=== PATIENT | male | born 1990 | race Caucasian/White ===

== ENCOUNTER 2017-02-23 18:57 | Emergency (ER) | payer SELFPAY ==
[2017-02-23 19:35] VITALS: BP 128/55
[2017-02-23] MEDS ORDERED: Ketorolac 30 MG/ML SDV IM ONE (20:37)
--- NOTE | 2017-02-23 20:46 | EDM.PDOC ---
ED HPI GENERAL MEDICAL PROBLEM - General Chief Complaint: Back Pain or Injury Stated Complaint: BACK/SHOULDER PAIN, [id number] Time Seen by Provider: 02/23/17 20:35 Source of Information: Reports: Patient History Limitations: Reports: No Limitations - History of Present Illness INITIAL COMMENTS - FREE TEXT/NARRATIVE: This 26 yo male patient reports to the ED with upper back pain. The patient reports he was moving some concrete blocks yesterday and woke up with increased pain and stiffness in his upper back today. The patient reports he did go to work today, but was in constant pain throughout the day. The patient has not taken anything for temporary symptom relief. Onset: Today Duration: Constant Location: Reports: Back Quality: Reports: Ache, Dull Severity: Moderate Improves with: Reports: None Worsens with: Reports: None Associated Symptoms: Reports: No Other Symptoms Left Upper Back Pain Score (Numeric/FACES): 7 - Related Data Allergies Allergy/AdvReac Type Severity Reaction Status Date / Time No Known Allergies Allergy Verified 02/23/17 19:26 Home Meds: Home Meds . [No Known Home Meds] 09/03/15 [History] Past Medical History - Past Health History Medical/Surgical History: Denies Medical/Surgical History Genitourinary History: Reports: Renal Calculus Musculoskeletal History: Reports: Other (See Below) Other Musculoskeletal History: back pain Neurological History: Reports: Migraines - Infectious Disease History Infectious Disease History: Reports: Chicken Pox - Past Surgical History HEENT Surgical History: Reports: Myringotomy w Tube(s) Social & Family History - Tobacco Use Smoking Status *Q: Current Every Day Smoker Years of Tobacco use: 10 Packs/Tins Daily: 0.5 Used Tobacco, but Quit: No Second Hand Smoke Exposure: Yes - Caffeine Use Caffeine Use: Reports: Coffee, Energy Drinks, Soda - Alcohol Use Days Per Week of Alcohol Use: 0 Number of Drinks Per Day: 3 Total Drinks Per Week: 0 - Recreational Drug Use Recreational Drug Use: No - Living Situation & Occupation Living situation: Reports: with Family Occupation: Employed ED ROS GENERAL - Review of Systems Review Of Systems: ROS reveals no pertinent complaints other than HPI. ED EXAM, UPPER BACK/NECK PAIN - Physical Exam Exam: See Below Exam Limited By: No Limitations General Appearance: Alert, WD/WN, Moderate Distress Eye Exam: Bilateral Eye: EOMI, Normal Inspection, PERRL Ears Exam: Normal External Exam, Normal Canal, Hearing Grossly Normal, Normal TMs Nose Exam: Normal Inspection, Normal Mucousa, No Blood Throat/Mouth Exam: Normal Inspection, Normal Lips, Normal Teeth, Normal Gums, Normal Oropharynx, Normal Voice, No Airway Compromise Head Exam: Atraumatic, Normocephalic Neck Exam: Non-Tender, Full Range of Motion, Normal Alignment, Normal Inspection Nexus Criteria: No: Posterior, Midline Cervical Tenderness, Evidence of Intoxication, Altered Level of Consciousness, Focal Neurological Deficit, Painful Distraction Injuries Cardiovascular/Respiratory: Regular Rate, Rhythm, No M/R/G, Normal Peripheral Pulses, No JVD, Normal Breath Sounds, No Respiratory Distress GI/Abdominal: Normal Bowel Sounds, Soft, Non-Tender, No Organomegaly, No Distention, No Abnormal Bruit, No Mass (Male) Exam: Deferred Rectal (Males) Exam: Deferred Back Exam: Normal Inspection, Decreased Range of Motion, Paraspinal Tenderness ( left upper back) Extremities: Normal Inspection, Normal Range of Motion, Non-Tender, No Pedal Edema, Normal Capillary Refill 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, No Motor/Sensory Deficits, Alert, Normal Mood/Affect, Oriented x 3 Psychiatric: Normal Affect, Normal Mood Skin Exam: Normal Color, Warm/Dry Lymphatic: No Adenopathy Course - Vital Signs Last Recorded V/S: Last Vital Signs Temp 37.3 C 02/23/17 19:26 Pulse 72 02/23/17 19:26 Resp 16 02/23/17 19:26 BP 128/55 L 02/23/17 19:26 Pulse Ox 99 02/23/17 19:26 - Orders/Labs/Meds Orders: Active Orders 24 hr Category Date Time Status Ketorolac [Toradol] Med 02/23/17 20:37 Once 60 mg IM ONETIME ONE Orphenadrine [Norflex] Med 02/23/17 20:45 Ordered 60 mg IM Q12H Medication Orders Ketorolac Tromethamine (Toradol) 60 mg IM ONETIME ONE Stop: 02/23/17 20:38 Orphenadrine Citrate (Norflex) 60 mg IM Q12H [facility] Meds: Medications Generic Name Dose Route Start Last Admin Trade Name Freq PRN Reason Stop Dose Admin Ketorolac Tromethamine 60 mg 02/23/17 20:37 Toradol IM 02/23/17 20:38 ONETIME ONE Orphenadrine Citrate 60 mg 02/23/17 20:45 Norflex IM Q12H [facility] Departure - Departure Time of Disposition: 20:43 Disposition: Home, Self-Care 01 Condition: fair Clinical Impression: Upper back strain Qualifiers: Encounter type: initial encounter Qualified Code(s): S29.012A - Strain of muscle and tendon of back wall of thorax, initial encounter - Discharge Information Instructions: Back Pain, Adult, [id number], Muscle Strain, [id number], Back Injury Prevention, [id number] Forms: ED Department Discharge Care Plan Goals: The patient was advised of the examination results during the visit. The patient was given injections of Norflex (muscle relaxer) and Toradol (anti- inflammatory) during the visit. The patient was discharged with a script for Toradol (10 mg) #20 to take 1 by mouth every 6 hours and Flexeril (10 mg) #10 to take 1 by mouth at bedtime as needed. If the patient has any additional symptoms or concerns, the patient should follow-up with his primary care provider or return to the emergency department. - My Orders Last 24 Hours: My Active Orders 02/23/17 20:37 Ketorolac [Toradol] 60 mg IM ONETIME ONE 02/23/17 20:45 Orphenadrine [Norflex] 60 mg IM Q12H - Assessment/Plan Last 24 Hours: My Active Orders 02/23/17 20:37 Ketorolac [Toradol] 60 mg IM ONETIME ONE 02/23/17 20:45 Orphenadrine [Norflex] 60 mg IM Q12H
== END 2017-02-23 21:03 | disposition home or self-care (01) ==
LOC: DL.ED 18:57
DX: S29.012A Strain of muscle and tendon of back wall of thorax, initial encounter (principal); F17.210 Nicotine dependence, cigarettes, uncomplicated; G43.909 Migraine, unspecified, not intractable, without status migrainosus; Z96.22 Myringotomy tube(s) status; X50.9XXA Other and unspecified overexertion or strenuous movements or postures, initial encounter; Y93.89 Activity, other specified
CPT/HCPCS: 96372; 99283; J1885; J2360

== ENCOUNTER 2018-05-22 16:07 | Emergency (ER) | payer SELFPAY ==
[2018-05-22 16:15] VITALS: BP 148/69
[2018-05-22] MEDS ORDERED: Penicillin G Benzathine/Procaine 600-600 1.2 Millunits/2 ML Syringe IM ONE (16:35)
--- NOTE | 2018-05-22 16:37 | EDM.PDOC ---
Scribed by Elisabeth Hahn 05/22/18 [id number] for Yevgeniy Beard MD ED HPI GENERAL MEDICAL PROBLEM - General Chief Complaint: ENT Problem Stated Complaint: COLD [id number] Time Seen by Provider: 05/22/18 16:19 Source of Information: Reports: Patient, RN, RN Notes Reviewed History Limitations: Reports: No Limitations - History of Present Illness INITIAL COMMENTS - FREE TEXT/NARRATIVE: Patient presents to ER with complaint of sore throat, mild dry cough x3 days. He has subjective fevers, but did not measure his temperature. Decreased appetite. Denies abdominal pain, nausea, vomiting or rash. Onset Date: 05/20/18 Duration: Getting Worse Location: Reports: Generalized Quality: Reports: Ache Severity: Mild Improves with: Reports: None Worsens with: Reports: None Associated Symptoms: Reports: No Other Symptoms Throat Pain Score (Numeric/FACES): 6 - Related Data Allergies Allergy/AdvReac Type Severity Reaction Status Date / Time No Known Allergies Allergy Verified 05/22/18 16:13 Home Meds: Home Meds . [No Known Home Meds] 09/03/15 [History] Past Medical History - Past Health History Medical/Surgical History: Denies Medical/Surgical History Cardiovascular History: Reports: None Respiratory History: Reports: None Gastrointestinal History: Reports: None Genitourinary History: Reports: Renal Calculus Musculoskeletal History: Reports: Other (See Below) Other Musculoskeletal History: back pain Neurological History: Reports: Migraines Psychiatric History: Reports: None Endocrine/Metabolic History: Reports: None Hematologic History: Reports: None Immunologic History: Reports: None Oncologic (Cancer) History: Reports: None Dermatologic History: Reports: None - Infectious Disease History Infectious Disease History: Reports: Chicken Pox - Past Surgical History HEENT Surgical History: Reports: Myringotomy w Tube(s) Social & Family History - Family History Family Medical History: Noncontributory - Tobacco Use Smoking Status *Q: Current Every Day Smoker Years of Tobacco use: 10 Packs/Tins Daily: 1 - Caffeine Use Caffeine Use: Reports: None - Recreational Drug Use Recreational Drug Use: No - Living Situation & Occupation Living situation: Reports: with Family Occupation: Employed ED ROS ENT - Review of Systems Review Of Systems: ROS reveals no pertinent complaints other than HPI. ED EXAM, ENT - Physical Exam Exam: See Below Exam Limited By: No Limitations General Appearance: Alert, WD/WN, No Apparent Distress Eye Exam: Bilateral Eye: EOMI, Normal Inspection, PERRL Ears: Normal External Exam, Normal Canal, Hearing Grossly Normal, Normal TMs Nose: Other (mildly congested) Mouth/Throat: Normal Gums, Normal Lips, Normal Teeth, Pharyngeal Erythema. No: Tonsillar Exudates Head: Atraumatic, Normocephalic Neck: Other (shoddy cervical lymphadenopthy. No nuchal rigidity.) Respiratory/Chest: No Respiratory Distress, Lungs Clear, Normal Breath Sounds, No Accessory Muscle Use, Chest Non-Tender Cardiovascular: Regular Rate, Rhythm GI/Abdominal: Normal Bowel Sounds, Soft, Non-Tender, No Organomegaly, No Distention, No Abnormal Bruit, No Mass (Male) Exam: Deferred Rectal (Males) Exam: Deferred Extremities: Normal Inspection, Normal Range of Motion, Non-Tender, No Pedal Edema, Normal Capillary Refill Neurological: Alert, No Motor/Sensory Deficits Skin: Warm, Dry, Intact, Normal Color, No Rash Course - Vital Signs Last Recorded V/S: Last Vital Signs Temp 36.1 C 05/22/18 16:14 Pulse 80 05/22/18 16:14 Resp 16 05/22/18 16:14 BP 148/69 H 05/22/18 16:14 Pulse Ox 100 05/22/18 16:14 - Orders/Labs/Meds Orders: Active Orders 24 hr Category Date Time Status Pen G Yoandy/Pen G Procaine [Bicillin C-R 600/600] Med 05/22/18 16:35 Once 1.2 millunits IM ONETIME ONE Labs: Rapid strep: Positive. Departure - Departure Time of Disposition: 16:36 Disposition: Home, Self-Care 01 Condition: Good Clinical Impression: Pharyngitis Qualifiers: Pharyngitis/tonsillitis etiology: streptococcus Qualified Code(s): J02.0 - Streptococcal pharyngitis - Discharge Information Instructions: Strep Throat, [id number] Forms: ED Department Discharge Additional Instructions: Rx: Z-Meño 250mg Frequent saltwater gargles until improved. Follow up in clinic if not improving in 3 days. - My Orders Last 24 Hours: My Active Orders 05/22/18 16:35 Pen G Yoandy/Pen G Procaine [Bicillin C-R 600/600] 1.2 millunits IM ONETIME ONE - Assessment/Plan Last 24 Hours: My Active Orders 05/22/18 16:35 Pen G Yoandy/Pen G Procaine [Bicillin C-R 600/600] 1.2 millunits IM ONETIME ONE I have read and agree with the documentation that has been completed regarding this visit. By signing this record, I attest that the documentation was completed in my physical presence and is an accurate record of the encounter.
== END 2018-05-22 16:49 | disposition home or self-care (01) ==
LOC: DL.ED 16:07
DX: J02.0 Streptococcal pharyngitis (principal); F17.210 Nicotine dependence, cigarettes, uncomplicated
CPT/HCPCS: 87430; 96372; 99282; J0558

== ENCOUNTER 2019-01-11 09:31 | Emergency (ER) | payer OTHER ==
[2019-01-11 09:39] VITALS: BP 109/65
[2019-01-11] MEDS: Aspirin 81 MG Tab.Chew PO ONE (10:05)
--- NOTE | 2019-01-11 10:09 | EDM.PDOC ---
ED HPI GENERAL MEDICAL PROBLEM - General Chief Complaint: Chest Pain Stated Complaint: EKG [id number] Time Seen by Provider: 01/11/19 09:55 Source of Information: Reports: Patient History Limitations: Reports: No Limitations - History of Present Illness INITIAL COMMENTS - FREE TEXT/NARRATIVE: This 28 yo male patient was sent to the ED from the [facility] due to left sided chest pain and increased shortness of breath on exertion. The patient reports his pain started last night at about 2030 and has continued since that time. The patient reports he was driving home when he noticed the chest pain start. The patient reports increased shortness of breath with exertion. The patient reports he took, ibuprofen and a muscle relaxer last night, but did not have any symptom relief. The patient also reports he had a headache during the night and almost came to the ED at 0300 this morning due to the headache. The patient reports he has a history of left rotator cuff injury with some similar pain, but he has not had pain into his chest in the past. The patient reports he is a smoker, but did not smoke much last night. The patient is able to touch the areas of increased pain from the left sternal border to the left mid chest. Onset Date: 01/10/19 Onset Time: 20:30 Duration: Hour(s):, Constant Location: Reports: Chest (left sided chest pain) Quality: Reports: Ache, Sharp, Stabbing Severity: Severe Improves with: Reports: None Worsens with: Reports: None Context: Reports: Other Associated Symptoms: Reports: Chest Pain, Shortness of Breath Treatments TREASURY AGENT: Reports: NSAIDS, Other Medication(s) (muscle relaxer) Mid-Sternal Chest Pain Score (Numeric/FACES): 7 - Related Data Allergies Allergy/AdvReac Type Severity Reaction Status Date / Time No Known Allergies Allergy Verified 01/11/19 09:39 Home Meds: Home Meds . [No Known Home Meds] 09/03/15 [History] Past Medical History - Past Health History Medical/Surgical History: Denies Medical/Surgical History Cardiovascular History: Reports: None Respiratory History: Reports: None Gastrointestinal History: Reports: None Genitourinary History: Reports: Renal Calculus Musculoskeletal History: Reports: Other (See Below) Other Musculoskeletal History: back pain Neurological History: Reports: Migraines Psychiatric History: Reports: None Endocrine/Metabolic History: Reports: None Hematologic History: Reports: None Immunologic History: Reports: None Oncologic (Cancer) History: Reports: None Dermatologic History: Reports: None - Infectious Disease History Infectious Disease History: Reports: Chicken Pox - Past Surgical History HEENT Surgical History: Reports: Myringotomy w Tube(s) Social & Family History - Family History Family Medical History: Noncontributory - Tobacco Use Smoking Status *Q: Current Every Day Smoker Years of Tobacco use: 6 Packs/Tins Daily: 0.4 Second Hand Smoke Exposure: Yes - Caffeine Use Caffeine Use: Reports: None - Recreational Drug Use Recreational Drug Use: No - Living Situation & Occupation Living situation: Reports: with Family Occupation: Employed ED ROS GENERAL - Review of Systems Review Of Systems: ROS reveals no pertinent complaints other than HPI. ED EXAM, GENERAL - Physical Exam Exam: See Below Exam Limited By: No Limitations General Appearance: Alert, WD/WN, Moderate Distress Eye Exam: Bilateral Eye: EOMI, Normal Inspection, PERRL Ears: Normal External Exam, Normal Canal, Hearing Grossly Normal, Normal TMs Nose: Normal Inspection, Normal Mucosa, No Blood Throat/Mouth: Normal Inspection, Normal Lips, Normal Teeth, Normal Gums, Normal Oropharynx, Normal Voice, No Airway Compromise Head: Atraumatic, Normocephalic Neck: Normal Inspection, Supple, Non-Tender, Full Range of Motion Respiratory/Chest: No Respiratory Distress, Lungs Clear, Normal Breath Sounds, No Accessory Muscle Use, Other (left sided chest wall tenderness) Cardiovascular: Normal Peripheral Pulses, Regular Rate, Rhythm, No Edema, No Gallop, No JVD, No Murmur, No Rub GI/Abdominal: Normal Bowel Sounds, Soft, Non-Tender, No Organomegaly, No Distention, No Abnormal Bruit, No Mass (Male) Exam: Deferred Rectal (Males) Exam: Deferred Back Exam: Normal Inspection, Full Range of Motion, NT Extremities: Normal Inspection, Normal Range of Motion, Non-Tender, Normal Capillary Refill, No Pedal Edema Neurological: Alert, Oriented, CN II-XII Intact, Normal Cognition, Normal Gait, Normal Reflexes, No Motor/Sensory Deficits Psychiatric: Normal Affect, Normal Mood Skin Exam: Warm, Dry, Intact, Normal Color, No Rash Lymphatic: No Adenopathy Course - Vital Signs Last Recorded V/S: Last Vital Signs Temp 36.0 C 01/11/19 09:34 Pulse 80 01/11/19 09:34 Resp 18 01/11/19 09:34 BP 109/65 01/11/19 09:34 Pulse Ox 99 01/11/19 09:34 - Orders/Labs/Meds Orders: Active Orders 24 hr Category Date Time Status EKG Documentation Completion [RC] URGENT Care 01/11/19 09:34 Ordered Labs: Laboratory Tests 01/11/19 01/11/19 01/11/19 Range/Units 09:42 09:42 09:42 WBC 16.6 H (5.0-10.0) 10^3/uL RBC 5.44 (4.6-6.2) 10^6/uL Hgb 15.7 (14.0-18.0) g/dL Hct 44.6 (40.0-54.0) % MCV 82.0 D (80-100) fL MCH 28.9 (27.0-34.0) pg MCHC 35.2 H (33.0-35.0) g/dL Plt Count 232 (150-450) 10^3/uL Neut % (Auto) 73.7 (42.2-75.2) % Lymph % (Auto) 11.0 L (20.5-50.1) % [place] % (Auto) 14.1 H (2-8) % Eos % (Auto) 1.0 (1.0-3.0) % Baso % (Auto) 0.2 (0.0-1.0) % D-Dimer, Quantitative < 100 (0-400) ng/mL Sodium 135 (135-145) mmol/L Potassium 3.6 (3.6-5.0) mmol/L Chloride 100 L (101-111) mmol/L Carbon Dioxide 24.0 (21.0-31.0) mmol/L Anion Gap 14.6 BUN 14 (7-18) mg/dL Creatinine 0.8 (0.6-1.3) mg/dL Est Cr Clr Drug Dosing 145.10 mL/min Estimated GFR (MDRD) > 60 BUN/Creatinine Ratio 17.50 Glucose 125 H (74-105) mg/dL Calcium 9.1 (8.4-10.2) mg/dl Total Bilirubin 1.3 H (0.2-1.0) mg/dL AST 22 (10-42) IU/L ALT 13 (10-60) IU/L Alkaline Phosphatase 61 (42-121) IU/L Troponin I < 0.02 (0.00-0.02) ng/ml Total Protein 7.4 (6.7-8.2) g/dl Albumin 4.2 (3.2-5.5) g/dl Globulin 3.2 Albumin/Globulin Ratio 1.31 Urine Color (YELLOW) Urine Appearance (CLEAR) Urine pH (5.0-9.0) Ur Specific [place] (1.005-1.030) Urine Protein (NEGATIVE) Urine Glucose (UA) (NEGATIVE) Urine Ketones (NEGATIVE) Urine Occult Blood (NEGATIVE) Urine Nitrite (NEGATIVE) Urine Bilirubin (NEGATIVE) Urine Urobilinogen (0.2-1.0) mg/dL Ur Leukocyte Esterase (NEGATIVE) Urine RBC /HPF Urine WBC (0-5/HPF) /HPF Ur Epithelial Cells /HPF Urine Bacteria (0-FEW/HPF) /HPF Urine Mucus /LPF Urine Opiates Screen (NEGATIVE) Ur Oxycodone Screen (NEGATIVE) Urine Methadone Screen (NEGATIVE) Ur Barbiturates Screen (NEGATIVE) U Tricyclic Antidepress (NEGATIVE) Ur Phencyclidine Scrn (NEGATIVE) Ur Amphetamine Screen (NEGATIVE) U Methamphetamines Scrn (NEGATIVE) Urine MDMA Screen (NEGATIVE) U Benzodiazepines Scrn (NEGATIVE) Urine Cocaine Screen (NEGATIVE) U Marijuana (THC) Screen (NEGATIVE) 01/11/19 01/11/19 Range/Units 09:58 09:58 WBC (5.0-10.0) 10^3/uL RBC (4.6-6.2) 10^6/uL Hgb (14.0-18.0) g/dL Hct (40.0-54.0) % MCV (80-100) fL MCH (27.0-34.0) pg MCHC (33.0-35.0) g/dL Plt Count (150-450) 10^3/uL Neut % (Auto) (42.2-75.2) % Lymph % (Auto) (20.5-50.1) % [place] % (Auto) (2-8) % Eos % (Auto) (1.0-3.0) % Baso % (Auto) (0.0-1.0) % D-Dimer, Quantitative (0-400) ng/mL Sodium (135-145) mmol/L Potassium (3.6-5.0) mmol/L Chloride (101-111) mmol/L Carbon Dioxide (21.0-31.0) mmol/L Anion Gap BUN (7-18) mg/dL Creatinine (0.6-1.3) mg/dL Est Cr Clr Drug Dosing mL/min Estimated GFR (MDRD) BUN/Creatinine Ratio Glucose (74-105) mg/dL Calcium (8.4-10.2) mg/dl Total Bilirubin (0.2-1.0) mg/dL AST (10-42) IU/L ALT (10-60) IU/L Alkaline Phosphatase (42-121) IU/L Troponin I (0.00-0.02) ng/ml Total Protein (6.7-8.2) g/dl Albumin (3.2-5.5) g/dl Globulin Albumin/Globulin Ratio Urine Color Yellow (YELLOW) Urine Appearance Clear (CLEAR) Urine pH 6.5 (5.0-9.0) Ur Specific [place] 1.020 (1.005-1.030) Urine Protein 30 H (NEGATIVE) Urine Glucose (UA) Negative (NEGATIVE) Urine Ketones Negative (NEGATIVE) Urine Occult Blood Negative (NEGATIVE) Urine Nitrite Negative (NEGATIVE) Urine Bilirubin Negative (NEGATIVE) Urine Urobilinogen 0.2 (0.2-1.0) mg/dL Ur Leukocyte Esterase Negative (NEGATIVE) Urine RBC Not seen /HPF Urine WBC 0-5 (0-5/HPF) /HPF Ur Epithelial Cells Few /HPF Urine Bacteria Few (0-FEW/HPF) /HPF Urine Mucus Many H /LPF Urine Opiates Screen Negative (NEGATIVE) Ur Oxycodone Screen Negative (NEGATIVE) Urine Methadone Screen Negative (NEGATIVE) Ur Barbiturates Screen Negative (NEGATIVE) U Tricyclic Antidepress Negative (NEGATIVE) Ur Phencyclidine Scrn Negative (NEGATIVE) Ur Amphetamine Screen Positive H (NEGATIVE) U Methamphetamines Scrn Positive H (NEGATIVE) Urine MDMA Screen Negative (NEGATIVE) U Benzodiazepines Scrn Negative (NEGATIVE) Urine Cocaine Screen Negative (NEGATIVE) U Marijuana (THC) Screen Positive H (NEGATIVE) Meds: Medications Discontinued Medications Generic Name Dose Route Start Last Admin Trade Name Freq PRN Reason Stop Dose Admin Aspirin 324 mg 01/11/19 10:02 04/24/19 10:05 Aspirin PO 01/11/19 10:03 324 mg ONETIME ONE Administration - Re-Assessments/Exams Free Text/Narrative Re-Assessment/Exam: 01/11/19 10:37 The patient was advised of the lab results. The patient admits to smoking marijuana and also taking some Ritalin in the past couple of days. Departure - Departure Time of Disposition: 10:35 Disposition: Home, Self-Care 01 Condition: Fair Clinical Impression: Nonspecific chest pain, Chest wall pain Instructions: Nonspecific Chest Pain, [id number], Chest Wall Pain, Easy-to- Read Forms: ED Department Discharge Care Plan Goals: The patient was advised of the examination, lab, x-ray and EKG results during the visit. The patient was encouraged to rest and relax. The patient may take Tylenol or ibuprofen as directed for temporary symptom relief. The patient should avoid taking medications that are not prescribed to him. If the patient has any additional symptoms or concerns, the patient should either return to the emergency department or visit his primary care facility. - My Orders Last 24 Hours: My Active Orders 01/11/19 09:34 EKG Documentation Completion [RC] URGENT - Assessment/Plan Last 24 Hours: My Active Orders 01/11/19 09:34 EKG Documentation Completion [RC] URGENT
[2019-01-11 10:10] LABS: ANION GAP 14.6; CHLORIDE,CL 100 mmol/L (101-111); SODIUM,NA 135 mmol/L (135-145)
--- NOTE | 2019-01-11 10:10 | CR ---
Clinical history: 28-year-old male chest pain and shortness of breath. Interpretation: *No acute new cardiopulmonary abnormality identified in the interval since 09 August 2014 (comparison exam). Normal cardiac silhouette and bony thorax. Left-sided aortic arch. No cephalization of flow, signs of alveolar edema or dependent pleural effusion. No new lung mass, hilar lymphadenopathy or focal lobar pneumonia. No atelectasis/collapse. No pneumothorax.
== END 2019-01-11 10:41 | disposition home or self-care (01) ==
LOC: DL.ED 09:31
DX: R07.89 Other chest pain (principal); F17.210 Nicotine dependence, cigarettes, uncomplicated
CPT/HCPCS: 36415; 71046; 80053; 80305; 81001; 84484; 85025; 85379; 93005; 99285; A9270

== ENCOUNTER 2019-09-03 09:23 | Emergency (ER) | payer MEDICAID ==
[2019-09-03 09:27] VITALS: BP 117/74; PULSE 60
[2019-09-03 10:22] LABS: ANION GAP 10.2; CHLORIDE,CL 104 mmol/L (101-111); SODIUM,NA 136 mmol/L (135-145)
[2019-09-03 10:26] LABS: ACETAMINOPHEN < 10 ug/mL
[2019-09-03] MEDS ORDERED: Sodium Chloride 0.9% 1,000 ML IV ONE (11:14)
--- NOTE | 2019-09-03 12:25 | EDM.PDOCBH ---
Scribed by Elisabeth Hahn 09/03/19 1129 for Susy Tovar NP ED HPI GENERAL MEDICAL PROBLEM - General Chief Complaint: Behavioral/Psych Stated Complaint: SUICIDAL THOUGHTS Time Seen by Provider: 09/03/19 09:47 Source of Information: Reports: Patient, RN, RN Notes Reviewed History Limitations: Reports: No Limitations - History of Present Illness INITIAL COMMENTS - FREE TEXT/NARRATIVE: Patient presents to ER stating that he overdosed on Wellbutrin 10 tablets 2 hours ago. He states that he vomited up all the tablets immediately. He felt remorseful, after looking at pictures of his children and feels he cannot entertain the idea of being suicidal and has to be there for his kids. Patient has had suicidal thoughts for approximately 1 month. He was started on Wellbutrin 3 months and feels that the Wellbutrin. He starts a new job at 0800 tomorrow morning and does not want to be admitted. He just wanted to be checked out. Presently feeling calm. He is not anxious. He had some muscle tightness in his right scapular and neck region. History of benign positional vertigo and migraines, otherwise healthy. "He has never been in this condition before and feels embarrassed". Patient states he punched a wall with his left hand this am as well. He has an abrasion on the 4th and 5th web that is mild with minimal pain. Onset: Today Severity: Moderate Improves with: Reports: None Worsens with: Reports: None Associated Symptoms: Reports: No Other Symptoms Generalized Pain Score (Numeric/FACES): 5 - Related Data Allergies Allergy/AdvReac Type Severity Reaction Status Date / Time No Known Allergies Allergy Verified 09/03/19 09:28 Home Meds: Home Meds buPROPion HCl [Wellbutrin Xl] 150 mg PO DAILY 09/03/19 [History] Past Medical History - Past Health History Medical/Surgical History: Denies Medical/Surgical History Cardiovascular History: Reports: None Respiratory History: Reports: None Gastrointestinal History: Reports: None Genitourinary History: Reports: Renal Calculus Musculoskeletal History: Reports: Other (See Below) Other Musculoskeletal History: back pain Neurological History: Reports: Migraines, Vertigo (benign positional) Psychiatric History: Reports: Anxiety, Depression, Suicide Attempt Endocrine/Metabolic History: Reports: None Hematologic History: Reports: None Immunologic History: Reports: None Oncologic (Cancer) History: Reports: None Dermatologic History: Reports: None - Infectious Disease History Infectious Disease History: Reports: Chicken Pox - Past Surgical History HEENT Surgical History: Reports: Myringotomy w Tube(s) Social & Family History - Family History Family Medical History: Noncontributory - Tobacco Use Smoking Status *Q: Current Every Day Smoker Years of Tobacco use: 15 Packs/Tins Daily: 0.5 - Caffeine Use Caffeine Use: Reports: None - Recreational Drug Use Recreational Drug Use: No - Living Situation & Occupation Living situation: Reports: with Family Occupation: Employed ED ROS GENERAL - Review of Systems Review Of Systems: Comprehensive ROS is negative, except as noted in HPI. ED EXAM, BEHAVIORAL HEALTH - Physical Exam Exam: See Below Exam Limited By: No Limitations General Appearance: Alert, WD/WN, No Apparent Distress Eye Exam: Bilateral Eye: EOMI, Normal Inspection, PERRL Ears: Normal External Exam, Normal Canal, Hearing Grossly Normal, Normal TMs Nose: Normal Inspection, Normal Mucosa, No Blood Throat/Mouth: Normal Inspection, Normal Lips, Normal Teeth, Normal Gums, Normal Oropharynx, Normal Voice, No Airway Compromise Head: Atraumatic, Normocephalic Neck: Normal Inspection, Supple, Non-Tender, Full Range of Motion Respiratory/Chest: No Respiratory Distress, Lungs Clear, Normal Breath Sounds, No Accessory Muscle Use, Chest Non-Tender Cardiovascular: Normal Peripheral Pulses, Regular Rate, Rhythm, No Edema, No Gallop, No JVD, No Murmur, No Rub GI/Abdominal: Normal Bowel Sounds, Soft, Non-Tender, No Organomegaly, No Distention, No Abnormal Bruit, No Mass (Male) Exam: Deferred Rectal (Males) Exam: Deferred Back Exam: Normal Inspection, Full Range of Motion, NT Extremities: Normal Inspection, Normal Range of Motion, Non-Tender, Normal Capillary Refill, No Pedal Edema Neurological: Alert, Normal Mood/Affect, CN II-XII Intact, Normal Cognition, Normal Gait, Normal Reflexes, No Motor/Sensory Deficits, Oriented x 3 Psychiatric: Other (history depression. "Denies present thoughts of suicide") Skin Exam: Other (abrasion left hand 3-4 webs otherwise normal. ) EKG INTERPRETATION EKG Date: 09/03/19 Time: 09:55 Rhythm: Other (sinus rhythm) Rate (Beats/Min): 67 EKG Interpretation Comments: QT interval is 372. COURSE, BEHAVIORAL HEALTH COMP - Course Vital Signs: Last Vital Signs Temp 36.4 C 09/03/19 09:26 Pulse 60 09/03/19 09:26 Resp 18 09/03/19 09:26 BP 117/74 09/03/19 09:26 Pulse Ox 100 09/03/19 09:26 Orders, Labs, Meds: Active Orders 24 hr Category Date Time Status EKG 12 Lead [EKG Documentation Completion] [RC] STAT Care 09/03/19 09:49 Active Sodium Chloride 0.9% [Normal Saline] 1,000 ml Med 09/03/19 11:14 Active IV .BOLUS Medication Orders Sodium Chloride (Normal Saline) 1,000 mls @ 999 mls/hr IV .BOLUS ONE Stop: 09/03/19 12:14 Last Admin: 09/03/19 11:19 Dose: 999 mls/hr Laboratory Tests 09/03/19 09/03/19 09/03/19 Range/Units 09:55 09:55 11:58 WBC 10.0 (5.0-10.0) 10^3/uL RBC 5.49 (4.6-6.2) 10^6/uL Hgb 15.8 (14.0-18.0) g/dL Hct 45.6 (40.0-54.0) % MCV 83.1 (80-100) fL MCH 28.8 (27.0-34.0) pg MCHC 34.6 (33.0-35.0) g/dL Plt Count 251 (150-450) 10^3/uL Neut % (Auto) 57.9 (42.2-75.2) % Lymph % (Auto) 26.7 (20.5-50.1) % Wallace % (Auto) 13.0 H (2-8) % Eos % (Auto) 2.0 (1.0-3.0) % Baso % (Auto) 0.4 (0.0-1.0) % Sodium 136 (135-145) mmol/L Potassium 4.2 (3.6-5.0) mmol/L Chloride 104 (101-111) mmol/L Carbon Dioxide 26.0 (21.0-31.0) mmol/L Anion Gap 10.2 BUN 12 (7-18) mg/dL Creatinine 0.9 (0.6-1.3) mg/dL Est Cr Clr Drug Dosing 126.49 mL/min Estimated GFR (MDRD) > 60 BUN/Creatinine Ratio 13.33 Glucose 93 (74-105) mg/dL Calcium 9.0 (8.4-10.2) mg/dl Total Bilirubin 0.6 (0.2-1.0) mg/dL AST 18 (10-42) IU/L ALT 13 (10-60) IU/L Alkaline Phosphatase 63 (42-121) IU/L Total Protein 7.2 (6.7-8.2) g/dl Albumin 4.2 (3.2-5.5) g/dl Globulin 3.0 Albumin/Globulin Ratio 1.40 Salicylates < 4 mg/dL Urine Opiates Screen Negative (NEGATIVE) Ur Oxycodone Screen Negative (NEGATIVE) Urine Methadone Screen Negative (NEGATIVE) Acetaminophen < 10 ug/mL Ur Barbiturates Screen Negative (NEGATIVE) U Tricyclic Antidepress Negative (NEGATIVE) Ur Phencyclidine Scrn Negative (NEGATIVE) Ur Amphetamine Screen Positive H (NEGATIVE) U Methamphetamines Scrn Positive H (NEGATIVE) Urine MDMA Screen Negative (NEGATIVE) U Benzodiazepines Scrn Negative (NEGATIVE) Urine Cocaine Screen Negative (NEGATIVE) U Marijuana (THC) Screen Negative (NEGATIVE) Medications Generic Name Dose Route Start Last Admin Trade Name Freq PRN Reason Stop Dose Admin Sodium Chloride 1,000 mls @ 999 mls/hr 09/03/19 11:14 09/03/19 11:19 Normal Saline IV 09/03/19 12:14 999 mls/hr .BOLUS ONE Administration Re-Assessment/Re-Exam: Crisis Line was called and will come to evaluate the patient. 1 L NS. No anxiety. VSS and no tachycardia. NSR; EKG normal with a normal QT. Poison control was contacted. Labs - CBC, CMP, Acetaminophen, Salicylates all normal Drug screen noted positive for Methamphetamines and amphetamines - discussed results with patient. Crises eval by mental health; she felt he is safe to be discharged; he has an appt with mental health in am; they will then adjust meds and recommend interventions. Patient is not suicidal and has a friend that will be over his house for support. He wants to start his job in am and does not want to stay 24 hours for observation. He is not tachy or anxious. He understands the recommendation for OD on Wellbutrin requires 24 hours observation in hospital on manager cardiac cath. He is cooperative No symptoms of OD and no tachycardia; his QT was normal. I did have him signs a AMA to sign out instead of being admitted per patients request. Departure - Departure Time of Disposition: 12:20 Disposition: Against Medical Advice 07 Condition: Good Clinical Impression: Overdose Qualifiers: Encounter type: initial encounter Injury intent: intentional self-harm Qualified Code(s): T50.902A - Poisoning by unspecified drugs, medicaments and biological substances, intentional self-harm, initial encounter - Discharge Information Forms: ED Department Discharge Additional Instructions: As we discussed; recommendation was to stay 24 hours with cardiac monitoring. You are choosing to leave against medical advice. You labs and VS are normal. You are positive for methamphetamines You have an appt for mental health in am; please follow through If any worsening symptoms or feel unsafe; then please return. Sepsis Event Note - Evaluation Sepsis Screening Result: No Definite Risk - Focused Exam Vital Signs: Vital Signs Temp Pulse Resp BP Pulse Ox 09/03/19 09:26 36.4 C 60 18 117/74 100 Date Exam was Performed: 09/03/19 Time Exam was Performed: 12:11 - My Orders Last 24 Hours: My Active Orders 09/03/19 09:49 EKG 12 Lead [EKG Documentation Completion] [RC] STAT 09/03/19 11:14 Sodium Chloride 0.9% [Normal Saline] 1,000 ml IV .BOLUS - Assessment/Plan Last 24 Hours: My Active Orders 09/03/19 09:49 EKG 12 Lead [EKG Documentation Completion] [RC] STAT 09/03/19 11:14 Sodium Chloride 0.9% [Normal Saline] 1,000 ml IV .BOLUS I have read and agree with the documentation that has been completed regarding this visit. By signing this record, I attest that the documentation was completed in my physical presence and is an accurate record of the encounter.
== END 2019-09-03 12:28 | disposition left against medical advice (07) ==
LOC: DL.ED 09:23
DX: T43.292A Poisoning by other antidepressants, intentional self-harm, initial encounter (principal); R11.10 Vomiting, unspecified; F41.9 Anxiety disorder, unspecified; F32.9 Major depressive disorder, single episode, unspecified; F17.210 Nicotine dependence, cigarettes, uncomplicated; Z79.899 Other long term (current) drug therapy
CPT/HCPCS: 36415; 80053; 80305; 80329; 85025; 93005; 96360; 99285; J7030; G0480

== ENCOUNTER 2021-11-30 18:37 | Emergency (ER) | payer MEDICAID ==
[2021-11-30] MEDS ORDERED: Phenazopyridine 95 MG Tab PO ONE (18:55)
[2021-11-30] MEDS ORDERED: Ketorolac 30 MG/ML SDV IVPUSH ONE (18:55)
[2021-11-30] MEDS ORDERED: Sodium Chloride 0.9% 1,000 ML IV ONE (18:55)
[2021-11-30 19:04] VITALS: BP 139/90; PULSE 107
[2021-11-30 19:28] LABS: AMPHETAMINES,URINE POSITIVE (NEGATIVE); BARBITURATES,URINE NEGATIVE (NEGATIVE); BENZODIAZEPINE,URINE NEGATIVE (NEGATIVE); MDMA (ECSTASY), URINE POSITIVE (NEGATIVE); METHADONE,URINE NEGATIVE (NEGATIVE); METHAMPHETAMINES,URINE POSITIVE (NEGATIVE); OPIATES,URINE NEGATIVE (NEGATIVE); OXYCODONE,URINE NEGATIVE (NEGATIVE); PHENCYCLIDINE,URINE NEGATIVE (NEGATIVE); TCA,URINE NEGATIVE (NEGATIVE)
[2021-11-30 19:37] LABS: ANION GAP 11.5 mEq/L (7-13); CHLORIDE,CL 103 mmol/L (98-107); ESTIMATED GFR > 60; SODIUM,NA 139 mmol/L (136-145)
[2021-11-30] MEDS ORDERED: Tamsulosin 0.4 MG Cap.ER PO ONE (20:48)
[2021-11-30] MEDS ORDERED: cefTRIAXone 1 GM in Sodium Chloride 0.9% 50 ML IV ONE (20:49)
== END 2021-11-30 21:33 | disposition home or self-care (01) ==
LOC: DL.ED 18:37
DX: N20.0 Calculus of kidney (principal)
CPT/HCPCS: 36415; 74176; 80053; 80305; 81001; 83605; 85025; 86140; 96365; 96375; 99284; A9270; J0696; J1885; J7030; 99285

== ENCOUNTER 2023-05-30 02:54 | Emergency (ER) | payer MEDICAID ==
[2023-05-30 03:28] VITALS: BP 124/74; PULSE 73
[2023-05-30] MEDS ORDERED: Take Home: Amoxicillin/Clavulanate K 875-125 MG Tab, 6 Tab Pack PO ONE (03:32)
== END 2023-05-30 03:48 | disposition home or self-care (01) ==
LOC: DL.ED 02:54
DX: J02.0 Streptococcal pharyngitis (principal)
CPT/HCPCS: 87430; 99283; A9270

== ENCOUNTER 2023-07-16 15:35 | Emergency (ER) | payer MEDICAID ==
[2023-07-16] MEDS ORDERED: Penicillin G Benzathine/Procaine 600-600 1.2 Millunits/2 ML Syringe IM ONE (15:50)
[2023-07-16 15:52] VITALS: BP 136/80; PULSE 92
== END 2023-07-16 16:03 | disposition home or self-care (01) ==
LOC: DL.ED 15:35
DX: J02.0 Streptococcal pharyngitis (principal)
CPT/HCPCS: 96372; 99282; 99283; J0558